=== PATIENT | male | born 1965 | race Caucasian/White ===

== ENCOUNTER 2018-03-03 17:22 | Emergency (ER) | payer OTHER ==
[~2018-03-03] VITALS: Ht 172.7 cm; Wt 83.9 kg
[~2018-03-03 17:22] MED LIST: MEDROLDOSEPACK PO; NOHOMEMEDICATIONS
[2018-03-03] MEDS ORDERED: CLEOCIN HCL150 MG PO (18:02)
[2018-03-03] MEDS ORDERED: PREDNISONE 20 M20 MG PO (18:02)
[2018-03-03 18:33] VITALS: BP 140/85
== END 2018-03-03 18:05 | disposition home or self-care (01) ==
LOC: ER 17:22
DX: L03.211 Cellulitis of face (principal)